=== PATIENT | male | born 2005 | race African-American/Black ===

== ENCOUNTER 2023-10-18 01:25 | Emergency (ER) | payer MEDICAID ==
[~2023-10-18] VITALS: Ht 188 cm; Wt 120.0 kg
[2023-10-18] MEDS: HALOPERIDOL LACTATE 5MG/ML VIAL IM STA (02:02)
[2023-10-18] MEDS: LORAZEPAM 2MG/ML INJ IM ONE (02:02)
[2023-10-18] MEDS: DIPHENHYDRAMINE 50MG/ML VIAL IM STA (02:02)
[2023-10-18 02:51] LABS: BASOPHILS % 0.4 % (0.0-2.0); DIFFERENTIAL COMMENT 0; EOSINOPHILS % 1.4 % (0.0-5.0); HEMATOCRIT. 43.1 % (42.0-52.0); HEMOGLOBIN. 14.1 g/dL (14.0-18.0); LYMPHOCYTES % 15.1 % (20.0-50.0); MEAN CORPUSCULAR HEMOGLOBIN 26.3 pg (28.0-32.0); MEAN CORPUSCULAR HGB CONC 32.8 g/dL (31.0-37.0); MEAN CORPUSCULAR VOLUME 79.9 fL (80.0-94.0); MONOCYTES % 5.3 % (2.0-8.0); NEUTROPHILS % 77.8 % (40.0-76.0); PLATELET 257 x1000/uL (130-400); RED BLOOD CELL COUNT 5.39 mill/uL (4.7-6.1); RED CELL DISTRIBUTION WIDTH 13.5 % (11.6-14.6)
[2023-10-18 02:55] LABS: CHLORIDE 106 mEq/L (98-107); POTASSIUM 3.3 mEq/L (3.5-5.1); SODIUM 140 mEq/L (136-145)
[2023-10-18 02:56] LABS: CARBON DIOXIDE 27 mEq/L (21-32)
[2023-10-18 02:57] LABS: CALCIUM 9.3 mg/dL (8.7-10.4)
[2023-10-18 03:01] LABS: CREATININE 1.2 mg/dL (0.6-1.3); GLUCOSE 129 mg/dL (70-105)
[2023-10-18 03:02] LABS: UREA NITROGEN BLOOD 12 mg/dL (9-23)
[2023-10-18 03:03] LABS: ACETAMINOPHEN < 2 ug/mL (10-30)
[2023-10-18 03:04] LABS: CREATINE KINASE 423 IU/L (46-171)
[2023-10-18 03:28] LABS: ETHANOL BLOOD < 10 mg/dL (<10)
[2023-10-18] MEDS: SODIUM CHLORIDE 0.9% 1,000 ML IV ONE (03:30)
[2023-10-18] MEDS: ONDANSETRON HCL 4MG/2ML INJ IV ONE (10:19)
== END 2023-10-18 12:43 | disposition home or self-care (01) ==
LOC: ER 01:25
DX: F22 Delusional disorders (principal); R45.1 Restlessness and agitation; F15.90 Other stimulant use, unspecified, uncomplicated; F19.90 Other psychoactive substance use, unspecified, uncomplicated
CPT/HCPCS: 80048; 80307; 80329; 80320; 82550; 85025; 36415; 96360; 96361; 96372; 99285; J1200; J1630; J2060; G0480